=== PATIENT | female | born 1990 | race African-American/Black ===

== ENCOUNTER 2023-10-26 03:08 | Emergency (ER) | payer BC ==
[~2023-10-26] VITALS: Ht 154.9 cm; Wt 59.0 kg
[2023-10-26 03:33] VITALS: BP 126/78; PULSE 124; RESP 18; TEMP 97.8; O2SAT 98
== END 2023-10-26 08:17 | disposition left against medical advice (07) ==
LOC: ER 05:09
DX: F41.9 Anxiety disorder, unspecified (principal); Z53.21 Procedure and treatment not carried out due to patient leaving prior to being seen by health care provider
CPT/HCPCS: 99281